=== PATIENT | male | born 1965 | race American Indian/Alaskan Native ===

== ENCOUNTER 2018-07-08 18:20 | Emergency (ER) | payer SELFPAY ==
[2018-07-08 18:30] VITALS: BP 122/82
--- NOTE | 2018-07-08 20:26 | XRay Report ---
FINAL REPORT EXAM: XR SHOULDER 2+V RT HISTORY: PAIN TECHNIQUE: Three views right shoulder PRIORS: None. FINDINGS: No fractures are identified. No dislocation seen. The acromioclavicular joint is intact. Adjacent bony and soft tissue structures are unremarkable. IMPRESSION: Negative shoulder series
--- NOTE | 2018-07-08 20:33 | Emergency Department Report ---
Upper Extremity - [facility] Chief Complaint: Extremity Injury, Upper Stated Complaint: RT ARM OUT OF PLACE Time Seen by Provider: 07/08/18 20:39 Upper Extremity: Right Shoulder Occurred When: >5 Days Mechanism: Fall Severity: severe Symptoms: Yes Pain with Movement, Yes Limited Range of Movement, No Deformity, No Numbness, No Weakness, No Swelling, No Bruising/Ecchymosis, No Laceration or Abrasion Other History: Patient reports he suffered a fall which resulted in an injury to his right shoulder one month ago. He never sought treatment for the injury because the pain had some what subsided. He reports a recent flare-up in his right shoulder that started two days ago ED Review of Systems ROS: Stated complaint: RT ARM OUT OF PLACE Other details as noted in HPI Constitutional: denies: chills, fever Eyes: denies: eye pain, eye discharge, vision change ENT: denies: ear pain, throat pain Respiratory: denies: cough, shortness of breath, wheezing Cardiovascular: denies: chest pain, palpitations Endocrine: no symptoms reported Gastrointestinal: denies: abdominal pain, nausea, vomiting, diarrhea, hematemesis, melena Genitourinary: denies: urgency, dysuria Musculoskeletal: arthralgia (right shoulder). denies: back pain, joint swelling Skin: denies: rash, lesions Neurological: denies: headache, weakness, paresthesias Psychiatric: denies: anxiety, depression Hematological/Lymphatic: denies: easy bleeding, easy bruising ED Past Medical Hx - Past Medical History Previous Medical History?: No - Surgical History Past Surgical History?: No - Social History Smoking Status: Current Every Day Smoker - Medications Home Medications: Home Medications Medication Instructions Recorded Confirmed Last Taken Type Hydrocodone Bit/Acetaminophen 1 each PO Q6H PRN #12 tablet 07/10/13 Unknown Rx [Lortab 5-500 Tablet] Acetaminophen/Codeine [Tylenol #3] 1 tab PO Q6H PRN #15 tab 05/23/15 Unknown Rx Hyoscyamine Subl [Levsin Sl 0.125 0.125 mg SL Q6HR PRN #10 tab 05/23/15 Unknown Rx TAB] Ibuprofen 800 mg PO Q8H #30 tablet 07/08/18 Unknown Rx Upper Extremity Exam - Exam General: Vital signs noted. No distress. Alert and acting appropriately. Head and Torso: No HEENT Abnormality, No Neck Tenderness, No Chest/Lungs Abnormality, No Abdominal Tenderness, No Back Tenderness Shoulder Exam: Yes Shoulder Tenderness (right shoulder ), No Clavicle Tenderness , No Normal Range of Motion in Shoulder (limited by pain), No Shoulder Deformity , No AC Joint Tenderness Arm Exam: No Arm/Humerus Tenderness, No Arm Deformity Elbow: No Elbow Tenderness, No Normal Range of Motion in Elbow, No Elbow Deformity Forearm: No Forearm Tenderness, No Forearm Deformity, No Pain with Pronation, No Pain with Supination Wrist: Yes Normal ROM in Wrist, No Wrist Tenderness, No Wrist Deformity, No Snuffbox Tenderness, No Pain with Axial Thumb Compression Hand: Yes Normal ROM in Digit(s), No Hand Tenderness, No Hand Deformity, No Digit Tenderness, No Digit(s) Deformity, No Tendon Dysfunction CMS Exam: No Broken Skin, No Normal Distal Pulses, No Normal Capillary Refill, No Normal Distal Sensation ED Course Vital Signs 07/08/18 18:27 Temperature 98.4 F Pulse Rate 80 Respiratory 18 Rate Blood Pressure 122/82 O2 Sat by Pulse 100 Oximetry ED Medical Decision Making - Lab Data Vital Signs 07/08/18 18:27 Temperature 98.4 F Pulse Rate 80 Respiratory 18 Rate Blood Pressure 122/82 O2 Sat by Pulse 100 Oximetry - Radiology Data Radiology results: image reviewed EXAM: XR SHOULDER 2+V RT HISTORY: PAIN TECHNIQUE: Three views right shoulder PRIORS: None. FINDINGS: No fractures are identified. No dislocation seen. The acromioclavicular joint is intact. Adjacent bony and soft tissue structures are unremarkable. IMPRESSION: Negative shoulder series - Medical Decision Making During the course of ED, radiology studies ordered. The imaging studies revealed normal shoulder series. He was instructed to follow up with the selective referral given at discharge and sent home with prescription for Ibuprofen. He verbalized understanding - Differential Diagnosis Right Shoulder Pain, Right Shoulder Fracture, Right Shoulder Rotator Cuff Critical care attestation.: If time is entered above; I have spent that time in minutes in the direct care of this critically ill patient, excluding procedure time. ED Disposition Clinical Impression: Right shoulder pain Qualifiers: Chronicity: acute Qualified Code(s): M25.511 - Pain in right shoulder Disposition: DC-01 TO HOME OR SELFCARE Is pt being admited?: No Does the pt Need Aspirin: No Condition: Stable Instructions: Arthralgia (ED) Additional Instructions: Take medication as directed. Follow up with the selective referral given at discharge Prescriptions: Ibuprofen 800 mg PO Q8H #30 tablet Referrals: CHRISTOPHER ROMO MD [Staff Physician] - 3-5 Days Time of Disposition: 20:48
== END 2018-07-08 21:29 | disposition home or self-care (01) ==
LOC: ED 18:20
DX: M25.511 Pain in right shoulder (principal); F17.200 Nicotine dependence, unspecified, uncomplicated; Z88.0 Allergy status to penicillin
CPT/HCPCS: 99283